=== PATIENT | female | born 1985 | race Caucasian/White ===

== ENCOUNTER 2020-09-25 17:16 | Emergency (ER) | payer SELFPAY ==
[~2020-09-25] VITALS: Ht 167.6 cm; Wt 65.9 kg
[2020-09-25 17:41] VITALS: BP 133/89
[2020-09-25] MEDS ORDERED: CEPH500C PO (18:16)
--- NOTE | 2020-09-25 18:16 | PHYS DOC ---
Past History Past Medical History: No Pertinent History Past Surgical History: No Surgical History Alcohol Use: None General Adult EDM: Chief Complaint: SKIN PROBLEM HPI: HPI: Patient is a 35-year-old female who presents with sores on her face, feet, hand after spending the night at a friend's house. Patient states "I ended up getting bit by bedbugs". "My friend also has sores on him and my boyfriend". Patient denies pain or itching to sores. Denies fever. Patient denies taking anything at home. Review of Systems: Review of Systems: Constitutional: Denies fever or chills Eyes: Denies change in visual acuity HENT: Denies nasal congestion or sore throat Respiratory: Denies cough or shortness of breath Cardiovascular: Denies chest pain or edema GI: Denies abdominal pain, nausea, vomiting, bloody stools or diarrhea : Denies dysuria Musculoskeletal: Denies back pain or joint pain Integument: Sores to face, hands, feet Neurologic: Denies headache, focal weakness or sensory changes Endocrine: Denies polyuria or polydipsia Lymphatic: Denies swollen glands Psychiatric: Denies depression or anxiety Physical Exam: PE: Constitutional: Well developed, well nourished, no acute distress, non-toxic appearance. [] HENT: Normocephalic, atraumatic, bilateral external ears normal, oropharynx moist, no oral exudates, nose normal. [] Eyes: PERRLA, EOMI, conjunctiva normal, no discharge. [] Neck: Normal range of motion, no tenderness, supple, no stridor. [] Cardiovascular:Heart rate regular rhythm, no murmur [] Lungs & Thorax: Bilateral breath sounds clear to auscultation [] Abdomen: Bowel sounds normal, soft, no tenderness, no masses, no pulsatile masses. [] Skin: Warm, dry, erythema to forehead, nose, chin, feet Back: No tenderness, no CVA tenderness. [] Extremities: No tenderness, no cyanosis, no clubbing, ROM intact, no edema. [] Neurologic: Alert and oriented X 3, normal motor function, normal sensory function, no focal deficits noted. [] Psychologic: Affect normal, judgement normal, mood normal. [] Current Patient Data: Vital Signs: Vital Signs Date Time Temp Pulse Resp B/P (MAP) Pulse Ox O2 Delivery O2 Flow Rate FiO2 09/25/20 17:41 97.8 84 16 133/89 (104) 97 Room Air EKG: EKG: [] Radiology/Procedures: Radiology/Procedures: [] Heart Score: Risk Factors: Risk Factors: DM, Current or recent (<one month) smoker, HTN, HLP, family history of CAD, obesity. Risk Scores: Score 0 - 3: 2.5% MACE over next 6 weeks - Discharge Home Score 4 - 6: 20.3% MACE over next 6 weeks - Admit for Clinical Observation Score 7 - 10: 72.7% MACE over next 6 weeks - Early Invasive Strategies Course & Med Decision Making: Course & Med Decision Making Pertinent Labs and Imaging studies reviewed. (See chart for details) [] Patient is a 35-year-old female who presents with sores on her face, feet, hand after spending the night at a friend's house. Patient states "I ended up getting bit by bedbugs". "My friend also has sores on him and my boyfriend". Patient denies pain or itching to sores. Denies fever. Patient denies taking anything at home. Prescribing Keflex to take at home 3 times daily x5 days. Patient to return to the emergency room with worsening symptoms or concerns. Juana Disclaimer: Juana Disclaimer: This electronic medical record was generated, in whole or in part, using a voice recognition dictation system. Departure Departure: Impression: Primary Impression: Facial cellulitis Disposition: 01 DC HOME SELF CARE/HOMELESS Condition: GOOD Patient Instructions: Cellulitis, [id number] Additional Instructions: You were seen in the emergency room today for a skin infection. Please return to the emergency room with worsening symptoms or concerns. EMERGENCY DEPARTMENT GENERAL DISCHARGE INSTRUCTIONS Thank you for coming to [facility] (ED) today and trusting us with you care. We trust that you had a positivie experience in our Emergency Department. If you wish to speak to the department management, you may call the director at [phone]. YOUR FOLLOW UP INSTRUCTIONS ARE FOLLOWS: 1. Do you have a private Doctor? If you do not have a private doctor, please ask for a resource list of physicians or clinics that may be able to assist you with follow up care. 2. The Emergency Physician has interpreted your x-rays. The X-Ray specialist will also review them. If there is a change in the findings, you will be notified in 48 hours when at all possible. 3. A lab test or culture has been done, your results will be reviewed and you will be notified if you need a change in treatment. ADDITIONAL INSTRUCTIONS AND INFORMATION: 1. Your care today has been supervised by a physician who is specially trained in emergency care. Many problems require more than one evaluation for a complete diagnosis and treatment. We recommend that you schedule your follow up appointment as recommended to ensure complete treatment of you illness or injury. If you are unable to obtain follow up care and continue to have a problem, or if your condition worsens, we recommend that you return to the ED. 2. We are not able to safely determine your condition over the phone nor are we able to give sound medical advice over the phone. For these safety reasons, if you call for medical advice we will ask you to come to the ED for further evaluation. 3. If you have any questions regarding these discharge instructions please call the ED at [phone]. SAFETY INFORMATION: In the interest of safety, wellness, and injury prevention; we encourage you to wear your sealbelt, if you smoke; quite smoking, and we encourage family to use a protective helmet for bicycling and other sporting events that present an increased risk for head injury. IF YOUR SYMPTOMS WORSEN OR NEW SYMPTOMS DEVELOP, OR YOU HAVE CONCERNS ABOUT YOUR CONDITION; OR IF YOUR CONDITION WORSENS WHILE YOU ARE WAITING FOR YOUR FOLLOW UP APPOINTMENT; EITHER CONTACT YOUR PRIMARY CARE DOCTOR, THE PHYSICIAN WHOSE NAME AND NUMBER YOU WERE GIVEN, OR RETURN TO THE ED IMMEDIATELY. Scripts Cephalexin (CEPHALEXIN) 500 Mg Capsule 500 MG PO Q6HRS for INFECTION for 5 Days, #20 CAP Prov: KIMBERLY BANG APRN 09/25/20 KIMBERLY BANG APRN Sep 25, 2020 18:16
== END 2020-09-25 18:38 | disposition home or self-care (01) ==
LOC: ER 17:16
DX: L03.211 Cellulitis of face (principal)
CPT/HCPCS: 99283

== ENCOUNTER 2021-04-13 10:20 | Emergency (ER) | payer SELFPAY ==
[~2021-04-13] VITALS: Ht 162.6 cm; Wt 76.5 kg
[~2021-04-13 10:20] MED LIST: CEPH500C PO
[2021-04-13 11:00] VITALS: BP 146/82
[2021-04-13] MEDS ORDERED: DOXYCYCLINE HYCLATE 100 MG TABLET PO ONE (11:00)
[2021-04-13] MEDS ORDERED: cefTRIAXone IM 500 MG VIAL. IM ONE (11:00)
--- NOTE | 2021-04-13 11:09 | PHYS DOC ---
Past History Past Medical History: No Pertinent History (ELIZABETH BARGER APRN) Past Surgical History: No Surgical History (ELIZABETH BARGER APRN) Alcohol Use: None (ELIZABETH BARGER APRN) General Adult EDM: Chief Complaint: ABSCESS HPI: HPI: Patient is a 35-year-old female who presents to the ER for multiple complaints. Patient reports that she is got a rash to the band left forearm. She also reports a possible abscess to her lower abdomen but states "it is going away so I am not back concerned about it". Patient is also reporting white thin vaginal discharge. She reports symptoms started 1 week ago. She states that the rash to her forearms is itchy. She does not have a history of eczema. She denies any vaginal odor, vaginal itching, concern for STDs, fever. (ELIZABETH BARGER APRN) Review of Systems: Review of Systems: 14 body systems of the review of systems have been reviewed. See HPI for p ertinent positive and negative responses, otherwise all other systems are negative, nonpertinent or noncontributory (ELIZABETH BARGER APRN) Allergies: Allergies: Allergies Coded Allergies Type Severity Reaction Last Updated Verified hydrocodone Allergy Unknown 04/13/21 Yes (ELIZABETH BARGER APRN) Physical Exam: PE: Constitutional: Well developed, well nourished, no acute distress, non-toxic appearance. [] HENT: Normocephalic, atraumatic, bilateral external ears normal, oropharynx moist, no oral exudates, nose normal. [] Eyes: PERRL, EOMI, conjunctiva normal, no discharge. [] Neck: Normal range of motion, no stridor Cardiovascular: Normal peripheral perfusion Lungs & Thora normal work of breathing, no tachypnea Abdomen: Bowel sounds normal, soft, no tenderness, no masses, no pulsatile masses, darkened circular lesion noted to lower abdomen, not raised, no drainage, no drainable abscess noted, no redness. [] Skin: Warm, dry, patient has dry, scaly erythematous area with fissure to left forearm consistent with atopic dermatitis Back: Normal range of motion Extremities: No tenderness, no cyanosis, no clubbing, ROM intact, no edema. [] Neurologic: Alert and oriented X 3, normal motor function, normal sensory function, no focal deficits noted. [] Psychologic: Affect normal, judgement normal, mood normal. [] (ELIZABETH BARGER APRN) EKG: EKG: [] (ELIZABETH BARGER APRN) Radiology/Procedures: Radiology/Procedures: [] (ELIZABETH BARGER APRN) Heart Score: C/O Chest Pain: No Risk Factors: Risk Factors: DM, Current or recent (<one month) smoker, HTN, HLP, family history of CAD, obesity. Risk Scores: Score 0 - 3: 2.5% MACE over next 6 weeks - Discharge Home Score 4 - 6: 20.3% MACE over next 6 weeks - Admit for Clinical Observation Score 7 - 10: 72.7% MACE over next 6 weeks - Early Invasive Strategies (ELIZABETH BARGER APRN) Course & Med Decision Making: Course & Med Decision Making Pertinent Labs and Imaging studies reviewed. (See chart for details) Patient is a 35-year-old female being seen in the ER for multiple complaints including a rash to her left forearm and vaginal discharge. Rash to patient's forearm is consistent with atopic dermatitis. Patient reports that she has not history of eczema. I have discussed patient's concern for STDs and she states that she has no concerns but would like to be tested and treated prophyl actically. Patient is choosing to forego a pelvic exam at this time. Patient self swabbed and tested for gonorrhea, chlamydia, bacterial vaginosis, trichomoniasis. Patient will be notified of results when they become available. Negative for trichomoniasis and BV in the ER. Patient treated in the ER with antibiotic. She was discharged home with a steroid cream to apply to her forearm. I discussed with patient all findings and diagnostic testing as well as the need to follow-up with PCP for further evaluation and treatment or return to the ER if any new or worsening symptoms. Strict return precautions were also discussed at length. Patient voiced understanding and agreement with the plan. Patient is hemodynamically stable at the time of disposition. (ELIZABETH BARGER APRN) Dragon Disclaimer: Dragon Disclaimer: This electronic medical record was generated, in whole or in part, using a voice recognition dictation system. (ELIZABETH BARGER APRN) Attending Co-Sign The patient was seen and interviewed as well as examined at the bedside. The chart was reviewed. The case was discussed. Agree with the plan of care. (ZOILA CHAN DO) Departure Departure: Impression: Primary Impression: Atopic dermatitis Qualified Codes: L20.89 - Other atopic dermatitis Additional Impression: Routine screening for STI (sexually transmitted infection) Disposition: 01 HOME / SELF CARE / HOMELESS Condition: GOOD Referrals: PCP,NO (PCP) Patient Instructions: Eczema, Sexually Transmitted Disease Additional Instructions: You were seen in the ER for multiple complaints including a rash to your forearm and vaginal discharge. The rash to your forearm is consistent with atopic dermatitis or eczema. To help with your dermatitis symptoms you can use emollients and moisturizers like Aquaphor. You are being discharged home with a prescription for a steroid cream that you can apply twice a day for 2 weeks. In the ER you were tested for gonorrhea, chlamydia, bacterial vaginosis, trichomoniasis. Your testing in the ER was negative for bacterial vaginosis and trichomonas. You will be notified of your STI results when they become available. You are prophylactically treated for gonorrhea/chlamydia in the ER today. You were given a shot of an antibiotic and a pill. You will also be discharged home with an antibiotic to take for STIs. Please make sure you start and finish this antibiotic completely. Follow-up with your primary care provider within the week to follow-up regarding your ER visit. You have any new or worsening concerns please return to the ER. EMERGENCY DEPARTMENT GENERAL DISCHARGE INSTRUCTIONS Thank you for coming to [facility] (ED) today and trusting us with you care. We trust that you had a positivie experience in our Emergency Department. If you wish to speak to the department management, you may call the director at [phone]. YOUR FOLLOW UP INSTRUCTIONS ARE FOLLOWS: 1. Do you have a private Doctor? If you do not have a private doctor, please ask for a resource list of physicians or clinics that may be able to assist you with follow up care. 2. The Emergency Physician has interpreted your x-rays. The X-Ray specialist will also review them. If there is a change in the findings, you will be notified in 48 hours when at all possible. 3. A lab test or culture has been done, your results will be reviewed and you will be notified if you need a change in treatment. ADDITIONAL INSTRUCTIONS AND INFORMATION: 1. Your care today has been supervised by a physician who is specially trained in emergency care. Many problems require more than one evaluation for a complete diagnosis and treatment. We recommend that you schedule your follow up appointment as recommended to ensure complete treatment of you illness or injury. If you are unable to obtain follow up care and continue to have a problem, or if your condition worsens, we recommend that you return to the ED. 2. We are not able to safely determine your condition over the phone nor are we able to give sound medical advice over the phone. For these safety reasons, if you call for medical advice we will ask you to come to the ED for further evaluation. 3. If you have any questions regarding these discharge instructions please call the ED at [phone]. SAFETY INFORMATION: In the interest of safety, wellness, and injury prevention; we encourage you to wear your sealbelt, if you smoke; quite smoking, and we encourage family to use a protective helmet for bicycling and other sporting events that present an increased risk for head injury. IF YOUR SYMPTOMS WORSEN OR NEW SYMPTOMS DEVELOP, OR YOU HAVE CONCERNS ABOUT YOUR CONDITION; OR IF YOUR CONDITION WORSENS WHILE YOU ARE WAITING FOR YOUR FOLLOW UP APPOINTMENT; EITHER CONTACT YOUR PRIMARY CARE DOCTOR, THE PHYSICIAN WHOSE NAME AND NUMBER YOU WERE GIVEN, OR RETURN TO THE ED IMMEDIATELY. Scripts Triamcinolone Acetonide (TRIAMCINOLONE ACETONIDE 0.1% OINT) 15 Gm Oint...g. 1 DARYN TP BID for atopic dermatitis for 14 Days, #1 DARYN 0 Refills Prov: ELIZABETH BARGER APRN 04/13/21 Doxycycline Hyclate (DOXYCYCLINE HYCLATE) 100 Mg Tablet 1 TAB PO BID for sti for 7 Days, #13 TAB 0 Refills Prov: ELIZABETH BARGER APRN 04/13/21 ELIZABETH BARGER APRN Apr 13, 2021 11:09 ZOILA CHAN DO Apr 13, 2021 17:15
[2021-04-13] MEDS ORDERED: TRIA15OI TP (12:17)
[2021-04-13] MEDS ORDERED: DOXY100T PO (12:17)
[2021-04-16 17:07] LABS: CHLAMYDIA PROBE Negative (Negative)
== END 2021-04-13 12:23 | disposition home or self-care (01) ==
LOC: ER 10:20
DX: L20.89 Other atopic dermatitis (principal); Z11.3 Encounter for screening for infections with a predominantly sexual mode of transmission; Z88.5 Allergy status to narcotic agent
CPT/HCPCS: 87491; 87591; 96372; 99283; J0696; Q0111